=== PATIENT | female | born 1945 | race Caucasian/White ===

== ENCOUNTER 2022-11-12 10:12 | Inpatient (IN) | payer BC, MEDICARE ==
[2022-11-12] VITALS (25 sets, daily range): BP systolic 120–199; BP diastolic 52–157
[~2022-11-12] VITALS: Ht 167.6 cm; Wt 81.7 kg
[~2022-11-12 10:12] MED LIST: ASPI81EC PO; ATEN50 PO; HYDCHL12.5 PO; LEVSOD112 PO; RAMI5 PO; SIMV40 PO
[2022-11-12 10:51] LABS: BASOPHILS ABSOLUTE AUTO 0.04 K/mm3 (0.00-0.23); BASOPHILS PERCENT AUTO 1 % (0-2); EOSINOPHILS ABSOLUTE AUTO 0.09 K/mm3 (0.00-0.68); EOSINOPHILS PERCENT AUTO 1 % (0-6); Hematocrit 37.8 % (33.0-51.0); Hemoglobin 12.2 g/dL (11.5-16.0); IMMATURE GRAN ABSOLUTE AUTO 0.03 K/mm3 (0.00-0.10); IMMATURE GRAN PERCENT AUTO 1 % (0-1); LYMPHOCYTES ABSOLUTE AUTO 1.64 K/mm3 (0.84-5.20); LYMPHOCYTES PERCENT AUTO 26 % (21-46); MONOCYTES ABSOLUTE AUTO 0.35 K/mm3 (0.16-1.47); MONOCYTES PERCENT AUTO 6 % (4-13); Mean Corpuscular HGB 29.3 pg (26.0-34.0); Mean Corpuscular HGB Conc 32.3 g/dL (31.5-36.5); Mean Corpuscular Volume 91 fL (80-100); Mean Platelet Volume 10.6 fL (9.1-12.4); NEUTROPHILS ABSOLUTE AUTO 4.09 K/mm3 (1.96-9.15); NEUTROPHILS PERCENT AUTO 66 % (41-73); NRBC ABSOLUTE 0.02 K/mm3 (0.00-0.02); NRBC Auto 0.3 /100 WBC (0.0-0.2); Platelet Count 299 K/mm3 (150-400); RDW Coefficient Variation 14.7 % (11.7-14.2); RDW Standard Deviation 49.3 fL (35.1-46.3); Red Blood Cell Count 4.16 M/mm3 (3.80-5.20); White Blood Cell Count 6.24 K/mm3 (4.00-11.30)
[2022-11-12] MEDS ORDERED: CARVEDILOL12.5 MG PO (10:57)
[2022-11-12] MEDS ORDERED: EUTHYROX50 MC1 PO (10:57)
[2022-11-12] MEDS ORDERED: ROSUVASTATIN CAL5 MG PO (10:58)
[2022-11-12] MEDS ORDERED: OMEP20ER PO (10:58)
[2022-11-12 11:09] LABS: Magnesium, Blood 2.2 mg/dL (1.6-2.4)
[2022-11-12 11:11] LABS: International Normalized Ratio 0.94; Prothrombin Time Results 9.9 Sec (9.7-11.5)
[2022-11-12 11:16] LABS: Alanine Aminotransfer (ALT/SGP 19 U/L (12-78); Albumin, Blood 3.6 g/dL (3.4-5.0); Albumin/Globulin Ratio 1.1 (0.8-1.8); Alk Phos 59 U/L (50-136); Anion Gap 4 mmol/L (6-16); Aspartate Aminotrans (AST/SGOT 22 U/L (12-37); Bilirubin, Direct <0.1 mg/dL (0.0-0.3); Bilirubin, Indirect Unable to Calculate mg/dL (0.1-0.7); Bilirubin, Total 0.3 mg/dL (0.1-1.0); Blood Urea Nitrogen 19 mg/dL (8-24); Bun/Creatinine Ratio 20.3 (12.0-20.0); CO2, Blood 24 mmol/L (21-32); Chloride, Blood 113 mmol/L (98-108); Creatinine, Blood 0.94 mg/dL (0.40-1.00); Globulin, Blood 3.4 g/dL (2.2-4.0); Glomerular Filtration Rate 63 (60-); Glucose, Blood 136 mg/dL (70-99); Phosphorus, Blood 3.8 mg/dL (2.5-4.9); Potassium, Blood 4.6 mmol/L (3.5-5.5); Sodium, Blood 141 mmol/L (136-145)
--- NOTE | 2022-11-12 19:17 | NUR ---
SHIFT SUMMARY PT ARRIVED TO ICU FROM [facility]. A&OX4, FOLLOWING COMMANDS, DENIES CP. C/O HEADACHE, MEDICATED WITH TYLENOL. TR BAND TO R RADIAL ARTERY, SCANT AMNT DRIED BLOOD, IMMOBILIZATION BOARD IN PLACE. PT COMPLIANT WITH NOT USING R HAND. PTS HR IN THE 30-40'S, BP >170. NITRO GTT TITRATED UP TO 40MCG/MIN. PT WITH 1 PERIPHERAL IV, ATTEMPTED 2 PERIPHERAL IV'S AND POWERGLIDE WITHOUT SUCCESS.
[2022-11-13] VITALS (31 sets, daily range): BP systolic 97–183; BP diastolic 46–89
[2022-11-13 03:39] LABS: Hematocrit 33.1 % (33.0-51.0); Hemoglobin 10.8 g/dL (11.5-16.0); Mean Corpuscular HGB Conc 32.6 g/dL (31.5-36.5); Mean Corpuscular Volume 89 fL (80-100); Mean Platelet Volume 10.5 fL (9.1-12.4); Platelet Count 306 K/mm3 (150-400); RDW Coefficient Variation 14.8 % (11.7-14.2); RDW Standard Deviation 48.5 fL (35.1-46.3); Red Blood Cell Count 3.73 M/mm3 (3.80-5.20); White Blood Cell Count 9.34 K/mm3 (4.00-11.30)
[2022-11-13 03:54] LABS: Bun/Creatinine Ratio 21.9 (12.0-20.0); Calcium, Blood 8.8 mg/dL (8.5-10.1); Creatinine, Blood 0.73 mg/dL (0.40-1.00); Potassium, Blood 4.2 mmol/L (3.5-5.5)
--- NOTE | 2022-11-13 05:13 | NUR ---
SHIFT SUMMARY: Assumed care of pt at 1900. TR band in place, nitroglycerin running at max rate per order but SBP still in the 180s-190s. Pt complains of severe headache. Medicated with fentanyl for headache, which relieved pain temporarily but did not decrease BP. Dr. Pham notified and orders received to discontinue nitro drip and start nicardipine drip for SBP goal <150. Nicardipine started at 2030 but turned off at 2100 due to quick drop in BP (170s- 120s). SBP remained in 150s systolic most of the night. Had to restart nicardipine at 2.5mg/hr briefly at 0100, turned off again at 0115. At 0435- SBP was in the 180s again, so I restarted the nicardipine at 1mg/hr. Throughout the night, pt complained of intermittent chest pain, neck pain, and headaches. At this time, she denies pain. Complained of heartburn "indigestion" overnight as well. Right radial TR band removed per protocol, site clean/dry/intact and soft. Removed at 2330. Ingnition risk assessed, no risk noted. Educated patient on no ignition policy and she verbalizes understanding.
--- NOTE | 2022-11-13 11:07 | NUR ---
SHIFT ASSESSMENT ASSUMED CARE OF PT @ 0700. BEDSIDE REPORT RECEIVED FROM MALLY MARTINEZ. PT A&OX4, FOLLOWING COMMANDS, AMBULATES WITH SBA TO BEDSIDE COMMODE. INITIALLY ON NICARDIPINE GTT, TRANSITIONED TO PO NORVASC, SBP 140'S. HR REMAINS IN THE 50'S, AWAITING DECISION FOR POSSIBLE PACEMAKER. PT C/O INDIGESTION, SLIGHT CP. MEDICATED WITH AM MEDS AND TUMS, EKG DONE, AND DISCUSSED COMPLAINTS WITH DR HOGUE. PT NOW FREE OF CP OR INDIGESTION. R RADIAL ACCES SITE C/D, TRANSPARENT DRESSING IN PLACE WELL IMMOBILIZATION BOARD. PT COMPLIANT WITH MINIMAL USAGE OF R HAND. PT NOW PCU STATUS, REPORT GIVEN TO STEPHANIE BAL.
--- NOTE | 2022-11-13 11:30 | NUR ---
Received report from Kobe BAL. Patient was brought over in wheelchair. She transferred self to PCU 19 bed and was independnet with positioning. at bedside. She is in 2nd degree block and rates in the 40-50's and staes only symptomatic when below 40 and has not been while here. TR band site WNl's with old bruising, replaced wrist support. She is alert and oriented and is able to communicate her needs. She has fluids and call light within reach. She has 20ga IV in LAC and flushed and SL'd.
--- NOTE | 2022-11-13 17:08 | NUR ---
Patient is independnet in room and has been up ion cahir and now is back to bed. She remains in 2nd degree block and states no current symptoms and Rate low to mid 40's. If she remains in cardiac situation the plan is for pacer in am. Dr Lopez is cardiology following. She has heartgburn amnd medicated with tums and protonix. WILL. VSS, see EMR. TR band site remains WNL and no oozing or hematoma's.
--- NOTE | 2022-11-13 18:37 | NUR ---
Patient laying in bed and independent with transfer. She denies any symptoms from 2nd degree block when supine or up in room, HR 40-50's. She has 20 ga IV in LAC patent and SL'd. She is up to bathroom when needed. She will be NPO after midnight for possible pacer in am. Dr Lopez doing possible pacer. No significant changes with patient. TR band site WNL's and wrist support in place and has been educated not to use wrist.
[2022-11-14] VITALS (14 sets, daily range): BP systolic 104–170; BP diastolic 57–85
[2022-11-14 06:25] LABS: BASOPHILS ABSOLUTE AUTO 0.05 K/mm3 (0.00-0.23); BASOPHILS PERCENT AUTO 1 % (0-2); EOSINOPHILS ABSOLUTE AUTO 0.11 K/mm3 (0.00-0.68); EOSINOPHILS PERCENT AUTO 2 % (0-6); Hematocrit 33.8 % (33.0-51.0); Hemoglobin 11.2 g/dL (11.5-16.0); IMMATURE GRAN ABSOLUTE AUTO 0.02 K/mm3 (0.00-0.10); IMMATURE GRAN PERCENT AUTO 0 % (0-1); LYMPHOCYTES ABSOLUTE AUTO 1.76 K/mm3 (0.84-5.20); LYMPHOCYTES PERCENT AUTO 29 % (21-46); MONOCYTES ABSOLUTE AUTO 0.52 K/mm3 (0.16-1.47); MONOCYTES PERCENT AUTO 9 % (4-13); Mean Corpuscular HGB 29.2 pg (26.0-34.0); Mean Corpuscular HGB Conc 33.1 g/dL (31.5-36.5); Mean Corpuscular Volume 88 fL (80-100); Mean Platelet Volume 10.8 fL (9.1-12.4); NEUTROPHILS ABSOLUTE AUTO 3.58 K/mm3 (1.96-9.15); NEUTROPHILS PERCENT AUTO 59 % (41-73); Platelet Count 289 K/mm3 (150-400); RDW Coefficient Variation 14.9 % (11.7-14.2); RDW Standard Deviation 47.8 fL (35.1-46.3); Red Blood Cell Count 3.84 M/mm3 (3.80-5.20); White Blood Cell Count 6.04 K/mm3 (4.00-11.30)
[2022-11-14 06:47] LABS: Bun/Creatinine Ratio 17.8 (12.0-20.0); Calcium, Blood 9.2 mg/dL (8.5-10.1); Creatinine, Blood 0.9 mg/dL (0.40-1.00); Potassium, Blood 3.9 mmol/L (3.5-5.5)
--- NOTE | 2022-11-14 06:52 | NUR ---
NOC SHIFT SUMMARY PT SLEPT WELL OVERNIGHT. ORIENTED X4, UAL IN ROOM. VSS PER PT TREND. NO COMPLAINTS OF PAIN OR DISCOMFORT. IN 2ND DEG HB TYPE II OVERNIGHT, ASYMPTOMATIC. R CATH SITE CDI, SOME OLD BRUISING. BUT FLAT TO TOUCH. NPO AFTER 0000. EDUCATED ON IGNITION RISK. WILL PASS TO DAY RN
--- NOTE | 2022-11-14 14:34 | NUR ---
POST PACE MAKER PT WENT IN FOR A DUEL CHAMBER PACE MAKER AT 1200 TODAY. SHE IS BACK TO THE ROOM AND HAS NO COMPLAINTS. PT DENIES ANY PAIN AT THE SITE, BUT WAS PROVIDED AN ICE PACK AND A SLING FOR HER LEFT ARM. A CHEST XRAY WAS COMPLETED SOON THE PT GOT TO THE ROOM. THE DRESSING IS C/D/I. IS AT BEDSIDE AND WAS UPDATED ON CARE.
--- NOTE | 2022-11-14 15:00 | NUR ---
PT REPORTIING MILD TENDERNESS ON THE LEFT CHEST WALL. SHE WAS MEDICATED WITH 650MG OF TYLENOL. DRESSING STILL C/D/I.
--- NOTE | 2022-11-14 18:41 | NUR ---
SHIFT SUMMARY PT IS A&OX4, HAD A PACEMAKER PLACED TODAY (DRESSING C/D/I), SHE HAS COMPLAINED OF PAIN TWICE AND SHE WAS MEDICATED W/ TYLENOL AND 25MCG OF FENTYNAL. ON TELE PT IS PACED 60'S-80'S , BP STABLE. SHE IS ON RA AND DENIES SOB. SP02 >90%. ICE PACK IN PLACE AND ARM SLING ON. PT AND EDUCATED ON FIRE IGNITION RISKS AND SAFETY.
[2022-11-15 06:57] VITALS: BP 144/78
--- NOTE | 2022-11-15 10:26 | NUR ---
MORNING SUMMARY PT IS A&OX4, SBA DUE TO ARM SLING ON LEFT ARM, AND CALLS APPROPRIATELY. THE PT'S DRESSING IS C/D/I, AND THE PT HAS MODERATE PAIN THIS MORNING WHICH SHE WAS MEDICATED WITH TYLENOL. PT HAS SUBSIDED. THE PT FINDS PAIN RELIEF AND COMFORT WITH THE ICE PACK. WE ARE WAITING FOR CARDIOLOGY TO COME SEE THE PT AND ARE AWAITING D/C. HER PACEMAKER WAS INTEROGATED THIS AM ON CARE SERVICES MANAGER. FAMILY AND EDUCATED ON FIRE IGNITION RISK AND SAFETY.
[2022-11-15] MEDS ORDERED: AMLO5 PO (11:18)
[2022-11-15] MEDS ORDERED: ASPI81CH PO (11:18)
[2022-11-15] MEDS ORDERED: CLOP75 PO (11:19)
[2022-11-15] MEDS ORDERED: CEPH500 PO (11:19)
[2022-11-15 11:40] VITALS: BP 134/69
--- NOTE | 2022-11-15 12:30 | NUR ---
DR. ESPINOSA TO THE BEDSIDE AND JACOB'Mary Kate THE PT TO D/C. HE WENT OVER HER MEDICATION LIST. PT D/C'D AT 1230. I CHANGED THE DRESSING OVER HER INSERTION SITE AND THEIR IS NO SIGNS OF INFECTION. BOTH IV'S WERE D/C'D AND HER BELONINGS WERE SENT WITH THE PT. I WENT OVER D/C INFORMATION AND ANSWERED ANY QUESTIONS THAT THE PT OR HER HAD.
== END 2022-11-15 12:30 | disposition home or self-care (01) | DRG 242 ==
LOC: ER 10:12 → ICUE 10:13 → PCU 11-13 11:26
PROVIDERS: Emergency Medicine; Internal Medicine; ADMIT Internal Medicine
PROC: 027034Z Dilation of Coronary Artery, One Artery with Drug-eluting Intraluminal Device, Percutaneous Approach (ICD-10-PCS; principal; 2022-11-12)
PROC: 4A023N7 Measurement of Cardiac Sampling and Pressure, Left Heart, Percutaneous Approach (ICD-10-PCS; 2022-11-12)
PROC: B2151ZZ Fluoroscopy of Left Heart using Low Osmolar Contrast (ICD-10-PCS; 2022-11-12)
PROC: 0JH606Z Insertion of Pacemaker, Dual Chamber into Chest Subcutaneous Tissue and Fascia, Open Approach (ICD-10-PCS; 2022-11-14)
PROC: 02H63JZ Insertion of Pacemaker Lead into Right Atrium, Percutaneous Approach (ICD-10-PCS; 2022-11-14)
PROC: 02HK3JZ Insertion of Pacemaker Lead into Right Ventricle, Percutaneous Approach (ICD-10-PCS; 2022-11-14)
DX: I44.2 Atrioventricular block, complete (principal); I21.4 Non-ST elevation (NSTEMI) myocardial infarction; I51.81 Takotsubo syndrome; I24.9 Acute ischemic heart disease, unspecified; I35.0 Nonrheumatic aortic (valve) stenosis; I27.20 Pulmonary hypertension, unspecified; I34.0 Nonrheumatic mitral (valve) insufficiency; I10 Essential (primary) hypertension; E78.5 Hyperlipidemia, unspecified; J45.909 Unspecified asthma, uncomplicated; E03.9 Hypothyroidism, unspecified; E05.00 Thyrotoxicosis with diffuse goiter without thyrotoxic crisis or storm; Z90.710 Acquired absence of both cervix and uterus; Z91.040 Latex allergy status; Z79.890 Hormone replacement therapy; Z79.899 Other long term (current) drug therapy; Z90.49 Acquired absence of other specified parts of digestive tract; Z79.82 Long term (current) use of aspirin; Z87.891 Personal history of nicotine dependence
CPT/HCPCS: 33208; 36415; 71045; 76937; 80048; 80076; 83735; 83880; 84100; 84443; 84484; 85025; 85027; 85379; 85520; 85610; 85730; 93005; 93010; 93306; 93458; 96361; 96365-59; 96367; 96375; 96375-59; 96376; 99152; 99153; 99291-25; A9270; C1769; C1785; C1874; C1887; C1894; C1898; C9600; G0378; J0461; J0690; J1644; J2250; J3010; J3475; J7030; J7040; J7050; Q9967